=== PATIENT | female | born 1940 | race Two or more races ===

== ENCOUNTER 2021-02-27 05:57 | Day surgery (SDC) | payer OTHER ==
[~2021-02-27 05:57] MED LIST: ATORVASTATIN CA20 MG PO; LEVOTHYROXINE25 MCG PO; MULTIPLE VITAM1 EACH PO; PROTONI PO
== END 2021-02-27 14:10 | disposition home or self-care (01) ==
LOC: CIR.AMB 05:57
PROVIDERS: ATTEND Orthopaedic Surgery Hand Surgery
DX: G56.02 Carpal tunnel syndrome, left upper limb (principal); Z20.822 Contact with and (suspected) exposure to COVID-19